=== PATIENT | female | born 1995 | race Caucasian/White ===

== ENCOUNTER → 2019-12-30 | Outpatient (CLI) | payer BC | LOC: MC.RAD 12:37 | DX: N63.22 Unspecified lump in the left breast, upper inner quadrant (principal); Z80.3 Family history of malignant neoplasm of breast ==

== ENCOUNTER → 2020-01-01 | Outpatient (CLI) | payer BC | LOC: MC.RAD 09:51 | DX: N63.12 Unspecified lump in the right breast, upper inner quadrant (principal) ==

== ENCOUNTER 2020-08-16 06:59 | Day surgery (SDC) | payer BC, OTHER ==
[2020-08-16] VITALS (8 sets, daily range): BP systolic 93–114; BP diastolic 52–67; PULSE 41–70; TEMP 98.5–98.7
[~2020-08-16] VITALS: Ht 175.3 cm; Wt 70.9 kg
--- NOTE | 2020-08-16 07:56 | NUR ---
PT HERE FOR DILATION AND CURETTAGE FOR MISSED . PLAN OF CARE REVIEWED WITH PT AND . ASSESSMENT COMPLETED. IV STARTED IN LEFT HAND WITH LR INFUSING.
--- NOTE | 2020-08-16 08:40 | NUR ---
PT TO OPERATING ROOM WITH OPERATING ROOM STAFF
[2020-08-16] MEDS ORDERED: IBU600 MG PO (09:27)
--- NOTE | 2020-08-16 09:30 | NUR ---
PT BACK TO UNIT AFTER DISCHARGE FROM OPERATING ROOM. REPORT RECEIVED FROM FRANNIE CAMPOS. PT SLEEPY BUT ORIENTED. STATES SHE IS NAUSEATED. WILL MONITOR OVER THE NEXT 15 MINUTES AND IF NAUSEA PERSISTS OR WORSENS WILL GIVE MEDICATION.
--- NOTE | 2020-08-16 10:15 | NUR ---
PT REPORTING CRAMPING IS INCREASING. ONE PERCOCET GIVEN.
--- NOTE | 2020-08-16 11:00 | NUR ---
PT REPORTS SHE FEELS MUCH BETTER AFTER EATING BREAKFAST. ALSO STATES PERCOCET HELPED. WOULD LIKE TO GO HOME. AMBULATES TO BATHROOM AND VOIDS WITHOUT DIFFICULTY. IV REMOVED.
== END 2020-08-16 11:30 | disposition home or self-care (01) ==
LOC: SDCO 06:59 → OB 07:00 → SDCO 09:00
DX: O02.1 Missed abortion (principal); J44.9 Chronic obstructive pulmonary disease, unspecified; Z90.12 Acquired absence of left breast and nipple; Z87.891 Personal history of nicotine dependence; Z90.89 Acquired absence of other organs; Z85.3 Personal history of malignant neoplasm of breast; Z80.0 Family history of malignant neoplasm of digestive organs; Z80.3 Family history of malignant neoplasm of breast; Z80.8 Family history of malignant neoplasm of other organs or systems
CPT/HCPCS: OP; J1885; J2405; J2704; J3010; J7120